=== PATIENT | female | born 1975 | race Two or more races ===

== ENCOUNTER 2020-11-04 14:38 | Emergency (ER) | payer MEDICAID, OTHER ==
[~2020-11-04] VITALS: Ht 165.1 cm; Wt 99.8 kg
[2020-11-04 15:27] VITALS: BP 108/70
[2020-11-04] MEDS ORDERED: KETOROLAC TROMETH 60MG/2ML VIAL IM ONE (15:30)
== END 2020-11-04 16:16 | disposition home or self-care (01) ==
LOC: ER 14:38 → EDBD 14:38 → ER 16:16
DX: S63.501A Unspecified sprain of right wrist, initial encounter (principal); S20.211A Contusion of right front wall of thorax, initial encounter; V43.52XA Car driver injured in collision with other type car in traffic accident, initial encounter; Y93.89 Activity, other specified; Y92.488 Other paved roadways as the place of occurrence of the external cause; Y99.8 Other external cause status
CPT/HCPCS: 71046; 73110; 93005; 96372; 99284; J1885

== ENCOUNTER 2022-04-10 12:15 | Emergency (ER) | payer MEDICAID ==
[~2022-04-10] VITALS: Ht 167.6 cm; Wt 68.1 kg
[2022-04-10 12:35] VITALS: BP 110/64
== END 2022-04-10 16:48 | disposition left against medical advice (07) ==
LOC: ER 12:15 → EDBD 12:15 → ER 16:48
DX: R07.89 Other chest pain (principal); Z53.21 Procedure and treatment not carried out due to patient leaving prior to being seen by health care provider

== ENCOUNTER 2022-11-05 17:20 | Emergency (ER) | payer MEDICAID ==
[~2022-11-05] VITALS: Ht 165.1 cm; Wt 70.5 kg
[2022-11-05 20:11] LABS: Basophils # (auto) 0 10 ^3/uL (0-0.2); Basophils % (auto) 0.2 % (0.0-2.0); Eosinophils # (auto) 0.2 10 ^3/uL (0-0.8); Eosinophils % (auto) 2.3 % (0.0-7.0); Hematocrit 32.9 % (36.0-46.0); Hemoglobin 10.6 g/dL (12.2-16.2); Lymphocytes # (auto) 1.5 10 ^3/uL (0.4-5.4); Mean Corpuscular Hgb Conc. 32.3 g/dL (32.0-36.0); Mean Corpuscular Volume 86.7 fL (80.0-100.0); Monocytes # (auto) 0.6 10 ^3/uL (0-1.3); Monocytes % (auto) 8.1 % (0.0-12.0); Neutrophils # (auto) 5.3 10 ^3/uL (1.6-8.6); Neutrophils % (auto) 69.4 % (37.0-80.0); Nucleated Red Blood Cells % 0.2 %; Red Blood Cells 3.79 10^6/uL (4.0-5.20); Red Cell Distribution Width 16.3 % (11.8-14.3); White Blood Cell 7.6 10^3/uL (4.4-10.8)
[2022-11-05 20:31] LABS: Albumin 2.7 g/dL (3.4-5.0); Calcium 8.6 mg/dL (8.5-10.1); Potassium 4.3 mmol/L (3.5-5.1)
[2022-11-05 20:36] LABS: BUN/Creatinine Ratio 14.7 (10.0-20.0); Bilirubin, Total 0.2 mg/dL (0.2-1.0); Total Protein 6.6 g/dL (6.4-8.2)
[2022-11-05] MEDS ORDERED: cefTRIAXone SOD 1,000 MG VL IM ONE (21:30)
[2022-11-05] MEDS ORDERED: CEPHALEXIN 250 MG CAP PO ONE (21:30)
[2022-11-05] MEDS ORDERED: SULFAMETHOX W/TRIMETH(800/160MG) DS TAB PO ONE (21:30)
[2022-11-05 21:36] VITALS: BP 110/67; PULSE 83; RESP 18; TEMP 98.2; O2SAT 99
[2022-11-05] MEDS ORDERED: CEPH500C PO (21:38)
[2022-11-05] MEDS ORDERED: BACDST PO (21:38)
[2022-11-05 21:49] LABS: Urine Bacteria FEW /hpf (None Seen); Urine Blood 1+ /uL (Negative); Urine Hyaline Cast FEW /lpf (0 - 2); Urine Mucus FEW (None Seen); Urine Specific Gravity 1.017 (1.001-1.035); Urine WBC 6 /hpf (0 - 5)
== END 2022-11-05 21:45 | disposition home or self-care (01) ==
LOC: ER 17:20
DX: T81.40XA Infection following a procedure, unspecified, initial encounter (principal); L03.311 Cellulitis of abdominal wall
CPT/HCPCS: 36415; 71046; 74176; 80053; 81001; 83605; 83690; 84484; 85025; 96372; 99285; J0696

== ENCOUNTER 2022-11-17 12:57 | Emergency (ER) | payer MEDICAID ==
[~2022-11-17] VITALS: Ht 165.1 cm; Wt 68.2 kg
[~2022-11-17 12:57] MED LIST: BACDST PO; CEPH500C PO
[2022-11-17 13:56] VITALS: BP 101/57; PULSE 86; RESP 16; TEMP 97.9; O2SAT 94
[2022-11-17] MEDS ORDERED: CLIN300C70 PO (14:33)
== END 2022-11-17 14:49 | disposition home or self-care (01) ==
LOC: ER 12:57
DX: S30.92XA Unspecified superficial injury of abdominal wall, initial encounter (principal); X58.XXXA Exposure to other specified factors, initial encounter; Y93.89 Activity, other specified; Y92.89 Other specified places as the place of occurrence of the external cause; Y99.8 Other external cause status
CPT/HCPCS: 10060

== ENCOUNTER 2023-05-06 09:06 | Emergency (ER) | payer MEDICAID ==
[~2023-05-06] VITALS: Ht 165.1 cm; Wt 83.8 kg
[~2023-05-06 09:06] MED LIST changes: +CLIN300C70 PO
[2023-05-06 09:16] VITALS: BP 155/74; PULSE 90; RESP 18; O2SAT 97
[2023-05-06 09:28] LABS: Urine Epithelial Cast None Seen /hpf (<5)
[2023-05-06 10:04] LABS: Basophils # (auto) 0 10 ^3/uL (0-0.2); Basophils % (auto) 0.3 % (0.0-2.0); Eosinophils # (auto) 0.1 10 ^3/uL (0-0.8); Eosinophils % (auto) 2.8 % (0.0-7.0); Hematocrit 37.4 % (36.0-46.0); Hemoglobin 12.4 g/dL (12.2-16.2); Lymphocytes # (auto) 1.6 10 ^3/uL (0.4-5.4); Lymphocytes % (auto) 30.9 % (10.0-50.0); Mean Corpuscular Hemoglobin 27.3 pg (28.0-32.0); Mean Corpuscular Hgb Conc. 33.2 g/dL (32.0-36.0); Mean Corpuscular Volume 82.2 fL (80.0-100.0); Monocytes # (auto) 0.4 10 ^3/uL (0-1.3); Monocytes % (auto) 7.2 % (0.0-12.0); Neutrophils # (auto) 3.1 10 ^3/uL (1.6-8.6); Neutrophils % (auto) 58.8 % (37.0-80.0); Nucleated Red Blood Cells % 0.1 %; Red Blood Cells 4.56 10^6/uL (4.0-5.20); Red Cell Distribution Width 14.9 % (11.8-14.3); White Blood Cell 5.2 10^3/uL (4.4-10.8)
[2023-05-06 10:21] LABS: Chloride 108 mmol/L (98-107); Potassium 4.1 mmol/L (3.5-5.1); Sodium 139 mmol/L (136-145)
[2023-05-06 10:22] LABS: Anion Gap 6 (5-15); Calcium 8.7 mg/dL (8.7-10.4); Carbon Dioxide 25 mmol/L (20-30)
[2023-05-06 10:27] LABS: BUN/Creatinine Ratio 25.8 (10.0-20.0); Blood Urea Nitrogen 17 mg/dL (9-23); Glucose 85 mg/dL (74-106)
[2023-05-06 10:48] LABS: Urine Bacteria FEW /hpf (None Seen); Urine Blood 3+ /uL (Negative); Urine Clarity HAZY (Clear); Urine Color Yellow (Yellow); Urine Protein, UAD Negative (Negative); Urine Specific Gravity 1.021 (1.001-1.035); Urine Urobilinogen Normal (Negative); Urine WBC 18 /hpf (0 - 5); Urine pH 6.5 (5.0-8.0)
[2023-05-06] MEDS ORDERED: CIPR-173 PO (12:10)
== END 2023-05-06 13:30 | disposition home or self-care (01) ==
LOC: ER 09:06
DX: N39.0 Urinary tract infection, site not specified (principal); R10.2 Pelvic and perineal pain
CPT/HCPCS: 36415; 74176; 80048; 81001; 85025